=== PATIENT | female | born 1955 | race Caucasian/White ===

== ENCOUNTER 2018-07-26 10:08 | Emergency (ER) | payer BC ==
[2018-07-26] MEDS ORDERED: Propofol 200 MG/20 ML SDV IV ONE (10:09)
[2018-07-26] MEDS ORDERED: Sodium Chloride 0.9% 10 ML Syringe FLUSH PRN (10:30)
[2018-07-26] MEDS ORDERED: fentaNYL 100 MCG/2 ML SDV IVPUSH ONE ×2 (10:30→11:27)
[2018-07-26] MEDS ORDERED: Bupivacaine 0.5% 30 ML SDV INFILT ONE (10:31)
[2018-07-26] MEDS ORDERED: Lidocaine 1% 30 ML SDV INJECT ONE (10:31)
[2018-07-26] MEDS ORDERED: Ondansetron 4 MG/2 ML SDV IV ONE (10:31)
[2018-07-26] MEDS ORDERED: fentaNYL 50 MCG/HR Transdermal Patch TRDERM SCH (11:30)
[2018-07-26] MEDS ORDERED: HYDROmorphone 1 MG/ML Syringe IVPUSH ONE ×2 (11:45→12:14)
--- NOTE | 2018-07-26 13:12 | EDM.PDOC ---
Scribed by Aranza Allred 07/26/18 1038 Jax Tyson MD ED HPI GENERAL MEDICAL PROBLEM - General Chief Complaint: Upper Extremity Injury/Pain Stated Complaint: ARM INJURY Time Seen by Provider: 07/26/18 10:28 Source of Information: Reports: Patient, RN, RN Notes Reviewed History Limitations: Reports: No Limitations - History of Present Illness INITIAL COMMENTS - FREE TEXT/NARRATIVE: Patient presents to ER by POV with complaint of injury to her right shoulder and upper arm. Patient tripped on her pajamas and fell towards the wall catching herself with her arm reaching overhead. She sustained severe pain and popping in her right upper arm area. No other injuries. Onset: Today Duration: Constant Location: Reports: Upper Extremity, Right Quality: Reports: Ache Severity: Severe Improves with: Reports: None Worsens with: Reports: None Associated Symptoms: Reports: No Other Symptoms Right Shoulder Pain Score (Numeric/FACES): 10 - Related Data Allergies Allergy/AdvReac Type Severity Reaction Status Date / Time Sulfa (Sulfonamide Allergy Mild Rash Verified 07/26/18 11:37 Antibiotics) Home Meds: Home Meds . [Unable to Verify Home Med List] 07/26/18 [History] Past Medical History - Past Health History Medical/Surgical History: Denies Medical/Surgical History Musculoskeletal History: Reports: Fracture (Foot) Endocrine/Metabolic History: Reports: Obesity/BMI 30+ Social & Family History - Family History Family Medical History: Noncontributory - Tobacco Use Smoking Status *Q: Never Smoker - Recreational Drug Use Recreational Drug Use: No - Living Situation & Occupation Living situation: Reports: with Family Occupation: Employed Review of Systems - Review of Systems Review Of Systems: ROS reveals no pertinent complaints other than HPI. ED EXAM, GENERAL - Physical Exam Exam: See Below Exam Limited By: No Limitations General Appearance: Alert, WD/WN, Anxious, Mild Distress (with pain) Nose: Normal Inspection Throat/Mouth: Normal Inspection, Normal Voice, No Airway Compromise Head: Atraumatic, Normocephalic Neck: Normal Inspection Respiratory/Chest: No Respiratory Distress Cardiovascular: Regular Rate, Rhythm Back Exam: Normal Inspection Extremities: Normal Capillary Refill, Arm Pain (she has obvious deformity right shoulder consistent with shoulder dislocation. No visible bruising or swelling. Skin is intact.), Limited Range of Motion (right shoulder). No: Joint Swelling Neurological: Alert, Oriented, CN II-XII Intact, Normal Cognition, No Motor/ Sensory Deficits Psychiatric: Normal Affect, Normal Mood, Anxious Skin Exam: Warm, Dry, Intact, Normal Color ED TRAUMA EXTREMITY PROCEDURES - Joint Reduction Site: Shoulder (R) Sedation: Conscious Sedation, Regional Block Local Anesthesia - Bupivicaine (Marcaine): 0.5% Plain Local Anesthetic Volume: Other (10cc) Pre-Procedure NV Status: Normal Post-Procedure NV Status: Normal Technique: Traction/Counter Traction Number of Attempts: 1 Post-Reduction Imaging: Completely Reduced, Fracture Seen (Hill-Sachs deformity) Joint Reduction Complications: No - Splinting Right Upper Extremity Splint Site: Rt shoulder Pre-Procedure NV Status: Normal Post-Procedure NV Status: Normal Splint Material: Velcro Splint Design: Other (Shoulder immobilizer) Applied & Form Fitted By: Nurse Provider Post-Splint Application NV Check: NV Status Normal, Good Position Complications: No Course - Vital Signs Last Recorded V/S: Last Vital Signs Temp 35.5 C 07/26/18 10:27 Pulse 97 07/26/18 10:27 Resp 16 07/26/18 10:27 BP 122/72 07/26/18 10:27 Pulse Ox 96 07/26/18 10:27 - Orders/Labs/Meds Orders: Active Orders 24 hr Category Date Time Status Peripheral IV Care [RC] . DIRECTED Care 07/26/18 10:31 Active Sodium Chloride 0.9% [Saline Flush] Med 07/26/18 10:30 Active 10 ml FLUSH ASDIRECTED PRN Peripheral IV Insertion Adult [OM.PC] Stat Oth 07/26/18 10:30 Ordered Medication Orders Sodium Chloride (Saline Flush) 10 ml FLUSH ASDIRECTED PRN PRN Reason: Keep Vein Open Meds: Medications Generic Name Dose Route Start Last Admin Trade Name Freq PRN Reason Stop Dose Admin Sodium Chloride 10 ml 07/26/18 10:30 Saline Flush FLUSH ASDIRECTED PRN Keep Vein Open Discontinued Medications Generic Name Dose Route Start Last Admin Trade Name Freq PRN Reason Stop Dose Admin Bupivacaine HCl 30 ml 07/26/18 10:31 07/26/18 12:19 Marcaine 0.5% INFILT 07/26/18 10:32 30 ml ONETIME ONE Administration Fentanyl 100 mcg 07/26/18 10:30 07/26/18 10:43 Sublimaze IVPUSH 07/26/18 10:31 100 mcg ONETIME ONE Administration Fentanyl 50 mcg 07/26/18 11:30 Duragesic TRDERM Q72H KANDI Fentanyl 50 mcg 07/26/18 11:27 07/26/18 11:32 Sublimaze IVPUSH 07/26/18 11:28 50 mcg ONETIME ONE Administration Hydromorphone HCl 1 mg 07/26/18 11:45 07/26/18 11:48 Dilaudid IVPUSH 07/26/18 11:46 1 mg ONETIME ONE Administration Hydromorphone HCl 1 mg 07/26/18 12:14 Dilaudid IVPUSH 07/26/18 12:15 ONETIME ONE Lidocaine HCl 30 ml 07/26/18 10:31 Xylocaine-Mpf 1% INJECT 07/26/18 10:32 ONETIME ONE Ondansetron HCl 4 mg 07/26/18 10:31 07/26/18 10:41 Zofran IV 07/26/18 10:32 4 mg ONETIME ONE Administration - Radiology Interpretation Free Text/Narrative:: EXAM: XR Right Shoulder Complete, 2 or More Views EXAM DATE/TIME: 07/26/2018 10:36 AM CLINICAL HISTORY: 62 years old, female; Injury or trauma; Fall; Initial encounter; Dislocation; Severity not specified; Shoulder; Right; Injury date: Today; Injury details: Patient fell and went to catch herself TECHNIQUE: XR Right shoulder complete 2 or more views. COMPARISON: No relevant prior studies available. Findings/impression: There is an anterior right shoulder dislocation with comminuted Hill-Sachs fracture deformity of the posterior superolateral humeral which is impacted on the anterior inferior glenoid. Thank you for allowing us to participate in the care of your patient. Dictated and Authenticated by: Tai Powell MD 07/26/2018 11:21 AM Central Time ([place] & [place]) [facility] Final Radiology Report Call: [phone] assistance Online chat: [email or web address] Name: CHANDAN LOMBARDI Age: 62Years F Date: 07/26/2018 SSN: -- : [id number] Study: CT EXTREMITY UPPER WO Requesting Physician: JAX GOMEZ Images: [id number] Addl Studies: Provided Clinical History: Contrast: Without Contrast Medium: Contrast Amount: Contrast Method: CONFIDENTIALITY STATEMENT This report is intended only for use by the referring physician, and only in accordance with law. If you received this in error, call [phone]. Page 1 of 1 EXAM: CT Right Upper Extremity Without Contrast, Shoulder EXAM DATE/TIME: 07/26/2018 10:57 AM CLINICAL HISTORY: 62 years old, female; Injury or trauma; Fall; Initial encounter; Dislocation; Severity not specified; Shoulder; Right; Injury date: Today; Injury details: Patient fell and went to catch herself TECHNIQUE: CT of the Right upper extremity without Intravenous contrast was performed. Exam focused on the shoulder. All CT scans at this facility use at least one of these dose optimization techniques: automated exposure control; mA and/or kV adjustment per patient size (includes targeted exams where dose is matched to clinical indication); or iterative reconstruction. Coronal and sagittal reformatted images were created and reviewed. COMPARISON: CR Shoulder Comp Rt 07/26/2018 10:36 AM FINDINGS/IMPRESSION: There is an anterior dislocation of the right shoulder with comminuted Hill- Sachs fracture deformity of the posterior superior lateral humeral head which is impacted on the anterior glenoid. The scapula/glenoid are otherwise intact. No Thank you for allowing us to participate in the care of your patient. Dictated and Authenticated by: Tai Powell MD 07/26/2018 11:20 AM Central Time ([place] & [place]) TECHNIQUE: XR Right shoulder 1 view. COMPARISON: CR Shoulder Comp Rt 07/26/2018 10:36 AM FINDINGS/IMPRESSION: There has been anatomic reduction of the previously noted anterior shoulder dislocation. Thank you for allowing us to participate in the care of your patient. Dictated and Authenticated by: Tai Powell MD 07/26/2018 12:23 PM Central Time ([place] & [place]) CT Results Date: 07/26/18 - Re-Assessments/Exams Free Text/Narrative Re-Assessment/Exam: 07/26/18 11:17 Called for orthopedic consult via [employer] Call at 11:17HRS. 07/26/18 13:10 Dr. Avalos agrees with Tx in ER and will see pt in clinic next week. Free Text/Narrative Re-Assessment/Exam: 07/26/18 13:11 See GEOMAGNETICIAN note by Elieser Lawler GEOMAGNETICIAN for sedation documentation. Departure - Departure Time of Disposition: 13:01 Disposition: Home, Self-Care 01 Condition: Good Clinical Impression: Closed fracture dislocation of right shoulder Qualifiers: Encounter type: initial encounter Qualified Code(s): S42.91XA - Fracture of right shoulder girdle, part unspecified, initial encounter for closed fracture - Discharge Information *PRESCRIPTION DRUG MONITORING PROGRAM REVIEWED*: Not Applicable *COPY OF PRESCRIPTION DRUG MONITORING REPORT IN PATIENT DREAD: Not Applicable Instructions: How to Use a Shoulder Immobilizer, Shoulder Dislocation, Easy-to- Read Referrals: PCP,None [Primary Care Provider] - Forms: ED Department Discharge Additional Instructions: Rx: Hydrocodone APAP 5mg/325mg *Do not drive or work while under the influence of this medication. Do not remove the shoulder immobilizer until seen by the orthopedic surgeon. Call [phone] Saturday, to schedule an appointment with Dr. Avalos for next week at [facility] in [place]. Return to ER if any further problems. - My Orders Last 24 Hours: My Active Orders 07/26/18 10:30 Sodium Chloride 0.9% [Saline Flush] 10 ml FLUSH ASDIRECTED PRN Peripheral IV Insertion Adult [OM.PC] Stat 07/26/18 10:31 Peripheral IV Care [RC] . DIRECTED - Assessment/Plan Last 24 Hours: My Active Orders 07/26/18 10:30 Sodium Chloride 0.9% [Saline Flush] 10 ml FLUSH ASDIRECTED PRN Peripheral IV Insertion Adult [OM.PC] Stat 07/26/18 10:31 Peripheral IV Care [RC] . DIRECTED I have read and agree with the documentation that has been completed regarding this visit. By signing this record, I attest that the documentation was completed in my physical presence and is an accurate record of the encounter.
== END 2018-07-26 13:30 | disposition home or self-care (01) ==
LOC: DL.ED 10:08
DX: S42.91XA Fracture of right shoulder girdle, part unspecified, initial encounter for closed fracture (principal); Z88.2 Allergy status to sulfonamides; E66.9 Obesity, unspecified; W19.XXXA Unspecified fall, initial encounter
CPT/HCPCS: 23650; 73020; 73200; 96374; 96375; 96376; 99284; J1170; J2405; J3010; J3490; J2704

== ENCOUNTER 2020-04-28 10:29 | Emergency (ER) | payer BC ==
--- NOTE | 2020-04-28 11:57 | EDM.PDOC ---
ED HPI GENERAL MEDICAL PROBLEM - General Chief Complaint: Respiratory Problem Stated Complaint: COVID+ Time Seen by Provider: 04/28/20 11:20 Source of Information: Reports: Patient, RN, RN Notes Reviewed History Limitations: Reports: No Limitations - History of Present Illness INITIAL COMMENTS - FREE TEXT/NARRATIVE: Patient presents to ER with complaint of body aches, intermittent sharp chest pains, feeling of shortness of breath from time to time, fever and chills, generalized malaise. Patient states she tested positive for COVID-19. Patient states she does not feel she needs to be quarantined. Patient has been treating herself at home with aspirin, states she does not generally take any kinds of medications. Patient states the pains in her chest and shortness of breath have made her nervous. Patient states she ordered a oxygen saturation monitor for home, and last evening this showed 88 to 89%. When she did get up and was active she felt somewhat short of breath but her oxygen saturation did go up to 94% on room air. Patient states she was given a Medrol Dosepak and has been taking that, and also had a Z-Talib at home and did start taking that and has 1 pi ll left for that round. Onset: Gradual Chest Pain Score (Numeric/FACES): 3 - Related Data Allergies Allergy/AdvReac Type Severity Reaction Status Date / Time Sulfa (Sulfonamide Allergy Mild Rash Verified 04/28/20 10:48 Antibiotics) Home Meds: Home Meds Cholecalciferol (Vitamin D3) [Vitamin D3] 1,000 units PO DAILY 05/11/19 [History] L.acidoph,Paracasei, B.lactis [Probiotic] 1 cap PO DAILY 05/11/19 [History] Magnesium Oxide [Magnesium] 500 mg PO DAILY 05/11/19 [History] [place]-3S/DHA/Epa/Fish Oil [Fish Oil [place]-3 Softgel] 2 cap PO DAILY 05/11/19 [History] cycloSPORINE [Restasis] 1 drop EYEBOTH ASDIRECTED 05/11/19 [History] Past Medical History - Past Health History Medical/Surgical History: Denies Medical/Surgical History HEENT History: Reports: Impaired Vision Other HEENT History: Wears glassses Cardiovascular History: Reports: None Respiratory History: Reports: None Gastrointestinal History: Reports: None Genitourinary History: Reports: None 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: , 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 Musculoskeletal History: Reports: Fracture Neurological History: Reports: None Psychiatric History: Reports: None Endocrine/Metabolic History: Reports: Obesity/BMI 30+ Hematologic History: Reports: None Immunologic History: Reports: None Oncologic (Cancer) History: Reports: None Dermatologic History: Reports: None - Infectious Disease History Infectious Disease History: Reports: Chicken Pox, Measles, Mumps - Past Surgical History HEENT Surgical History: Reports: None Cardiovascular Surgical History: Reports: None Respiratory Surgical History: Reports: None GI Surgical History: Reports: Appendectomy Female Surgical History: Reports: None Endocrine Surgical History: Reports: None Musculoskeletal Surgical History: Reports: None Social & Family History - Family History Family Medical History: No Pertinent Family History - Tobacco Use Tobacco Use Status *Q: Never Tobacco User Second Hand Smoke Exposure: No - Caffeine Use Caffeine Use: Reports: Coffee, Soda Caffeine Use Comment: 1-2 cups daily - Recreational Drug Use Recreational Drug Use: No - Living Situation & Occupation Living situation: Reports: with Family Occupation: Employed ED ROS GENERAL - Review of Systems Review Of Systems: Comprehensive ROS is negative, except as noted in HPI. ED EXAM, GENERAL - Physical Exam Exam: See Below Exam Limited By: No Limitations General Appearance: Alert, WD/WN, Mild Distress Eye Exam: Bilateral Eye: EOMI, Normal Inspection Ears: Normal External Exam, Hearing Grossly Normal Nose: Normal Inspection Throat/Mouth: Normal Inspection, Normal Voice, No Airway Compromise Head: Atraumatic, Normocephalic Neck: Normal Inspection, Supple, Non-Tender, Full Range of Motion Respiratory/Chest: No Respiratory Distress, No Accessory Muscle Use, Crackles (bases bilaterally) Cardiovascular: Normal Peripheral Pulses, Regular Rate, Rhythm, No Edema, No Gallop, No JVD, No Murmur, No Rub Peripheral Pulses: 2+: Radial (L), Radial (R) GI/Abdominal: Normal Bowel Sounds, Soft, Non-Tender (Female) Exam: Deferred Rectal (Female) Exam: Deferred Back Exam: Normal Inspection, Full Range of Motion, NT Extremities: Normal Inspection, Normal Range of Motion, Non-Tender, Normal Capillary Refill, No Pedal Edema Neurological: Alert, Oriented, CN II-XII Intact, Normal Cognition, Normal Gait, Normal Reflexes, No Motor/Sensory Deficits Psychiatric: Normal Affect, Normal Mood Skin Exam: Warm, Dry, Intact, Normal Color, No Rash Lymphatic: No Adenopathy Course - Vital Signs Last Recorded V/S: Last Vital Signs Temp 98.4 F 04/28/20 10:40 Pulse 82 04/28/20 10:40 Resp 16 04/28/20 10:40 BP 136/82 04/28/20 10:40 Pulse Ox 95 04/28/20 10:40 - Orders/Labs/Meds Labs: Laboratory Tests 04/28/20 04/28/20 04/28/20 Range/Units 11:40 11:40 11:40 WBC 6.2 (5.0-10.0) 10^3/uL RBC 4.39 (4.2-5.4) 10^6/uL Hgb 13.2 (12.0-16.0) g/dL Hct 41.2 (37.0-47.0) % MCV 93.8 (80-100) fL MCH 30.1 (27.0-34.0) pg MCHC 32.0 L (33.0-35.0) g/dL Plt Count 149 L (150-450) 10^3/uL Neut % (Auto) 75.3 H (42.2-75.2) % Lymph % (Auto) 19.6 L (20.5-50.1) % [place] % (Auto) 4.9 (2-8) % Eos % (Auto) 0.0 L (1.0-3.0) % Baso % (Auto) 0.2 (0.0-1.0) % Add Manual Diff Yes Neutrophils % (Manual) 73 (42-75) % Band Neutrophils % 1 % Lymphocytes % (Manual) 19 L (20-50) % Atypical Lymphs % 2 % Monocytes % (Manual) 5 (2-8) % PT 9.8 (9.0-12.0) SEC INR 1.0 (0.9-1.2) D-Dimer, Quantitative 417 H (0-400) ng/mL Sodium 137 (136-145) mmol/L Potassium 3.6 (3.5-5.1) mmol/L Chloride 99 (98-107) mmol/L Carbon Dioxide 30 (21-32) mmol/L Anion Gap 11.6 (7-13) mEq/L BUN 13 (7-18) mg/dL Creatinine 0.74 (0.55-1.02) mg/dL Est Cr Clr Drug Dosing 75.08 mL/min Estimated GFR (MDRD) > 60 BUN/Creatinine Ratio 17.6 (No establ ref range) Glucose 94 (74-99) mg/dL Calcium 8.4 L (8.5-10.1) mg/dL Ferritin (8-252) mg/mL Total Bilirubin 0.9 (0.2-1.0) mg/dL AST 21 (15-37) U/L ALT 29 (14-59) U/L Alkaline Phosphatase 90 (46-116) U/L Lactate Dehydrogenase 204 (81-234) U/L Troponin I < 0.017 (0.000-0.056) ng/mL C-Reactive Protein 1.6 H (0.0-0.9) mg/dL B-Natriuretic Peptide 78 (0-100) pg/ml Total Protein 7.2 (6.4-8.2) g/dL Albumin 3.3 L (3.4-5.0) g/dL Globulin 3.9 Albumin/Globulin Ratio 0.85 11/12/20 Range/Units 11:40 WBC (5.0-10.0) 10^3/uL RBC (4.2-5.4) 10^6/uL Hgb (12.0-16.0) g/dL Hct (37.0-47.0) % MCV (80-100) fL MCH (27.0-34.0) pg MCHC (33.0-35.0) g/dL Plt Count (150-450) 10^3/uL Neut % (Auto) (42.2-75.2) % Lymph % (Auto) (20.5-50.1) % [place] % (Auto) (2-8) % Eos % (Auto) (1.0-3.0) % Baso % (Auto) (0.0-1.0) % Add Manual Diff Neutrophils % (Manual) (42-75) % Band Neutrophils % % Lymphocytes % (Manual) (20-50) % Atypical Lymphs % % Monocytes % (Manual) (2-8) % PT (9.0-12.0) SEC INR (0.9-1.2) D-Dimer, Quantitative (0-400) ng/mL Sodium (136-145) mmol/L Potassium (3.5-5.1) mmol/L Chloride (98-107) mmol/L Carbon Dioxide (21-32) mmol/L Anion Gap (7-13) mEq/L BUN (7-18) mg/dL Creatinine (0.55-1.02) mg/dL Est Cr Clr Drug Dosing mL/min Estimated GFR (MDRD) BUN/Creatinine Ratio (No establ ref range) Glucose (74-99) mg/dL Calcium (8.5-10.1) mg/dL Ferritin 385 H (8-252) mg/mL Total Bilirubin (0.2-1.0) mg/dL AST (15-37) U/L ALT (14-59) U/L Alkaline Phosphatase (46-116) U/L Lactate Dehydrogenase (81-234) U/L Troponin I (0.000-0.056) ng/mL C-Reactive Protein (0.0-0.9) mg/dL B-Natriuretic Peptide (0-100) pg/ml Total Protein (6.4-8.2) g/dL Albumin (3.4-5.0) g/dL Globulin Albumin/Globulin Ratio - Radiology Interpretation Free Text/Narrative:: Chest x-ray: No acute new cardiopulmonary abnormality since PA comparison film 07 July 2007 - Re-Assessments/Exams Free Text/Narrative Re-Assessment/Exam: 04/29/20 10:23 Discussed lab findings with patient. At this time patient would like to decline CT of chest for PE rule out. I am okay with this as D-dimer is only minimally elevated. Oxygen saturation is 96% on room air, respirations of 12-14, no distress. No chest pains at this time. Departure - Departure Time of Disposition: 14:13 Disposition: Home, Self-Care 01 Condition: Good Clinical Impression: COVID-19 Upper respiratory infection Qualifiers: URI type: unspecified URI Qualified Code(s): J06.9 - Acute upper respiratory infection, unspecified - Discharge Information *PRESCRIPTION DRUG MONITORING PROGRAM REVIEWED*: No *COPY OF PRESCRIPTION DRUG MONITORING REPORT IN PATIENT DREAD: No Instructions: COVID-19 Frequently Asked Questions, Cough, Adult, Fdok-pt-Nrum, COVID-19: How to Protect Yourself and Others - CDC, Prevent the Spread of COVID- 19 if You Are Sick - CDC Forms: ED Department Discharge Additional Instructions: Finish Steroid and Azithromycin as directed Drink plenty of water RX: Pulmicort inhaler, Albuterol inhaler, Pulmicort Nebulizer solution Return to the ER with any worsening of problems Follow up with your primary care facility May use Tylenol and/or Ibuprofen as directed for pain/fever Sepsis Event Note (ED) - Evaluation Sepsis Screening Result: No Definite Risk
[2020-04-28 12:31] LABS: ANION GAP 11.6 mEq/L (7-13); CHLORIDE,CL 99 mmol/L (98-107); SODIUM,NA 137 mmol/L (136-145)
--- NOTE | 2020-04-28 13:29 | CR ---
EXAMINATION: Chest 1V Frontal SEX: Female AGE: 64 years CLINICAL HISTORY: 64-year-old female emergency department who is "covid +". INTERPRETATION: Upright AP portable chest 1. Normal cardiac silhouette (size and configuration). 2. No pulmonary vascular congestion, cephalization of flow, alveolar edema or dependent pleural effusion. 3. No lung mass or hilar lymphadenopathy. 4. No pneumothorax or pneumomediastinum. Midline tracheal bronchial airway unremarkable. 5. No focal lobar consolidation (infiltrate/atelectasis) or abnormal peripheral "groundglass" densities. CONCLUSION: No acute new cardiopulmonary abnormality since PA comparison film 07 July 2007.
== END 2020-04-28 14:24 | disposition home or self-care (01) ==
LOC: DL.ED 10:29
DX: U07.1 COVID-19 (principal); J06.9 Acute upper respiratory infection, unspecified; E66.9 Obesity, unspecified; Z68.25 Body mass index [BMI] 25.0-25.9, adult; Z88.2 Allergy status to sulfonamides
CPT/HCPCS: 36415; 71045; 80053; 82728; 83615; 83880; 84484; 85025; 85379; 85610; 86140; 93005; 99283; 99285-25

== ENCOUNTER 2022-01-11 02:00 | Emergency (ER) | payer MEDICARE, OTHER ==
[2022-01-11] MEDS ORDERED: Acetaminophen/oxyCODONE 325-5 MG Tab PO ONE (02:01)
[2022-01-11] MEDS ORDERED: Ondansetron 4 MG/2 ML SDV IVPUSH ONE (03:00)
[2022-01-11] MEDS ORDERED: fentaNYL 100 MCG/2 ML SDV IVPUSH ONE ×2 (03:01→04:22)
[2022-01-11] MEDS ORDERED: Sodium Chloride 0.9% 1,000 ML IV ONE (03:08)
[2022-01-11 03:32] LABS: ANION GAP 12.6 mEq/L (7-13); CHLORIDE,CL 104 mmol/L (98-107); SODIUM,NA 141 mmol/L (136-145)
[2022-01-11 03:35] LABS: ESTIMATED GFR 61 mL/min (>=60)
[2022-01-11] MEDS ORDERED: Iopamidol 612 MG/ML 100 ML Bottle IVPUSH ONE (03:42)
[2022-01-11] MEDS ORDERED: Ciprofloxacin 500 MG Tab PO ONE (05:31)
[2022-01-11] MEDS ORDERED: metroNIDAZOLE 250 MG Tab PO ONE (05:32)
[2022-01-11] MEDS ORDERED: Acetaminophen/oxyCODONE 325-5 MG Tab ONE (05:43)
== END 2022-01-11 05:55 | disposition home or self-care (01) ==
LOC: DL.ED 02:00
DX: K57.32 Diverticulitis of large intestine without perforation or abscess without bleeding (principal); E66.9 Obesity, unspecified; Z68.27 Body mass index [BMI] 27.0-27.9, adult; Z88.2 Allergy status to sulfonamides; Z79.899 Other long term (current) drug therapy; Z90.49 Acquired absence of other specified parts of digestive tract
CPT/HCPCS: 36415; 74177; 80053; 81001; 82150; 83605; 83690; 85025; 86140; 87040; 87086; 96374; 96375; 96376; 99284; A9270; J2405; J3010; J7030; Q9967